=== PATIENT | female | born 1965 | race Caucasian/White ===

== ENCOUNTER 2017-02-03 14:49 | Emergency (ER) | payer MEDICAID ==
[~2017-02-03] VITALS: Ht 165.1 cm; Wt 63.5 kg
[2017-02-03 15:56] LABS: CALCIUM 9.4 mg/dL (8.5-10.1); CREATININE 0.7 mg/dL (0.6-1.3); POTASSIUM 3.6 mmol/L (3.5-5.1)
[2017-02-03 16:02] LABS: ALBUMIN 4.4 g/dL (3.4-5.0); BILIRUBIN,DIRECT 0.1 mg/dL (0.0-0.2); BILIRUBIN,TOTAL 0.4 mg/dL (0.2-1.0); TOTAL PROTEIN, SERUM 8.7 g/dL (6.4-8.2)
[2017-02-03 16:04] LABS: TROPONIN I < 0.017 ng/mL (0.00-0.056)
[2017-02-03 16:12] LABS: LACTIC ACID 0.5 mmol/L (0.4-2.0)
[2017-02-03] MEDS ORDERED: predniSONE 20 MG TABLET PO ONE (16:15)
--- NOTE | 2017-02-03 16:25 | NUR ---
Pt dc;ed home w/ aci.
[2017-02-03 16:26] VITALS: BP 130/74
[2017-02-03] MEDS ORDERED: predniSONE 20 MG TABLET ONE (16:28)
[2017-02-03 16:40] LABS: HEMATOCRIT 45.6 % (33-45); HEMOGLOBIN 14.8 G/DL (11.5-14.8); MEAN CORPUSCULAR HEMOGLOBIN 28.1 UUG (26.0-33.0); MEAN CORPUSCULAR HGB CONC 33 g/dL (31.0-36.0); MEAN CORPUSCULAR VOLUME 86.5 FL (82-100); RED BLOOD CELL COUNT(AUTO) 5.27 MIL/UL (4.0-5.2); RED CELL DISTRIBUTION WIDTH 15.7 % (11.5-15.0)
[2017-02-03 16:41] LABS: BASOPHILS % (AUTO) 0.2 % (0.0-2.0); EOSINOPHILS % (AUTO) 4.9 % (0.0-7.0); LYMPHOCYTES # (AUTO) 1.4 K/UL (0.8-4.8); LYMPHOCYTES % (AUTO) 20.3 % (20.5-51.5); MONOCYTES # (AUTO) 0.5 K/UL (0.1-1.30); NEUTROPHILS # (AUTO) 4.5 K/UL (1.8-8.9); NEUTROPHILS % (AUTO) 67.6 % (43.0-81.0); PLATELET COUNT (AUTO) 229 K/UL (150-450)
[2017-02-03 16:42] LABS: WHITE BLOOD COUNT (AUTO) 6.7 K/UL (4.3-11.0)
== END 2017-02-03 16:27 | disposition home or self-care (01) ==
LOC: ER 14:49
DX: J45.909 Unspecified asthma, uncomplicated (principal); I10 Essential (primary) hypertension
CPT/HCPCS: 36415; 71010; 80048; 80076; 83605; 84484; 85025; 87040 ×2; 99285; A4663; J7512; 70030-TC